=== PATIENT | male | born 1950 | race Caucasian/White ===

== ENCOUNTER 2019-06-11 05:17 | Inpatient (IN) | payer MEDICARE, OTHER ==
[2019-06-11] MEDS: CEFAZOLIN 2 GM/50 ML (PMX) 50 ML IVPB (06:37)
[2019-06-11] MEDS: LACTATED RINGER'S 1,000 ML IV (06:38)
[2019-06-11] MEDS ORDERED: DESFLURANE 15 MIN (07:02)
[2019-06-11] MEDS ORDERED: PROPOFOL 20 ML (07:02)
[2019-06-11] MEDS ORDERED: ROCURONIUM 50 MG INJ (07:02)
[2019-06-11] MEDS ORDERED: SUCCINYLCHOLINE CHLORIDE 100 MG/5 ML SYG IV (07:02)
[2019-06-11] MEDS ORDERED: ETOMIDATE 20 MG INJ (07:02)
[2019-06-11] MEDS ORDERED: LIDOCAINE 1% (MDV) 20 ML INJ (07:02)
[2019-06-11] MEDS ORDERED: MIDAZOLAM 1 MG/ML 2 ML INJ (07:02)
[2019-06-11] MEDS ORDERED: GELATIN SIZE 100 SPONGE (07:10)
[2019-06-11] MEDS ORDERED: THROMBIN 5000 UNIT (RECOTHROM) VIAL (07:10)
[2019-06-11] MEDS ORDERED: DEXAMETHASONE 4 MG/ML 5 ML INJ (07:20)
[2019-06-11] MEDS ORDERED: ONDANSETRON 4 MG INJ (07:20)
[2019-06-11] MEDS: POLYMYXIN/BACITRACIN 1L IRRIG (08:11)
[2019-06-11] MEDS: BUPIVACAINE 0.25% (MPF) 30 ML INJ (08:11)
[2019-06-11] MEDS ORDERED: LABETALOL HCL 20MG INJ IV (09:00)
[2019-06-11] MEDS ORDERED: HYDROmorphONE 1 MG/5 ML IV SYRINGE IV ×2 (09:00)
[2019-06-11] MEDS ORDERED: hydrALAzine 20 MG INJ IV (09:00)
[2019-06-11] MEDS ORDERED: SUGAMMADEX SODIUM 200 MG/2 ML VIAL IV (10:04)
[2019-06-11] MEDS ORDERED: ESMOLOL 10 ML (10:09)
[2019-06-11] MEDS: HYDROmorphONE 1 MG/5 ML IV SYRINGE IV (10:42)
[2019-06-11] MEDS: ONDANSETRON 4 MG INJ IV (10:42)
[2019-06-11] MEDS ORDERED: ONDANSETRON 4 MG INJ IV (11:00)
[2019-06-11] MEDS ORDERED: ACETAMINOPHEN 325 MG TAB PO (11:00)
[2019-06-11] MEDS ORDERED: DIAZEPAM 5 MG TAB PO (11:00)
[2019-06-11] MEDS ORDERED: CEPASTAT LOZENGE MT (11:00)
[2019-06-11] MEDS ORDERED: HYDROCODONE/APAP (5/325) TAB PO ×2 (11:00)
[2019-06-11] MEDS ORDERED: TRIMETHOBENZAMIDE 100 MG/ML VIAL IM (11:00)
[2019-06-11] MEDS ORDERED: DIAZEPAM 5 MG/ML SYG IM (11:00)
[2019-06-11] MEDS ORDERED: ZOLPIDEM 5 MG TAB PO (11:00)
[2019-06-11] MEDS ORDERED: DIPHENHYDRAMINE 50 MG CAP PO (11:00)
[2019-06-11] MEDS ORDERED: AL HYDROX/MG HYDROX/SIMETH 30 ML CUP PO (11:00)
[2019-06-11] MEDS ORDERED: NALOXONE (0.4 MG/ML) INJ IV (11:00)
[2019-06-11] MEDS ORDERED: PROCHLORPERAZINE 10 MG TAB PO (11:00)
[2019-06-11] MEDS ORDERED: NACL 0.9% 3 ML SYG IV (11:00)
[2019-06-11] MEDS: HYDROmorphONE 0.2 MG/ML PCA IV (11:22)
[2019-06-11] MEDS ORDERED: ATENOLOL 25 MG TAB PO (13:30)
[2019-06-11] MEDS: DEXTROSE 5%-0.45% NACL 1,000 ML IV ×2 (16:45→20:57)
[2019-06-11] MEDS: ALLOPURINOL 100 MG TAB PO (16:45)
[2019-06-11] MEDS: PANTOPRAZOLE (EC) 40 MG TAB PO (16:45)
[2019-06-11] MEDS: THIAMINE 100 MG TAB PO (16:45)
[2019-06-11] MEDS: RANITIDINE 150 MG TAB PO (21:14)
[2019-06-11] MEDS: LOSARTAN 50 MG TAB PO (21:14)
[2019-06-11] MEDS: ATENOLOL 25 MG TAB PO (21:14)
[2019-06-11] MEDS: GABAPENTIN 300 MG CAP PO (21:14)
[2019-06-11] MEDS: ALFUZOSIN (SR) 10 MG TAB PO (23:31)
[2019-06-12] MEDS: DEXTROSE 5%-0.45% NACL 1,000 ML IV ×2 (02:23→16:57)
[2019-06-12] MEDS: HYDROmorphONE 0.2 MG/ML PCA IV (03:36)
[2019-06-12 06:19] LABS: HEMATOCRIT 38.3 % (42.0-52.0)
[2019-06-12 07:03] LABS: ANION GAP 5 (5-13); BLOOD UREA NITROGEN 18 mg/dl (7-20); CALCIUM 8.9 mg/dl (8.4-10.2); CARBON DIOXIDE 27 mmol/L (21-31); CHLORIDE 104 mmol/L (97-110); Estimated GFR > 60 mL/min (>60); GLUCOSE 124 mg/dl (70-220); POTASSIUM 4.1 mmol/L (3.5-5.1); SODIUM 136 mmol/L (135-144)
[2019-06-12] MEDS ORDERED: BETHANECHOL 25 MG TAB PO (08:00)
[2019-06-12] MEDS: THIAMINE 100 MG TAB PO (08:30)
[2019-06-12] MEDS: PANTOPRAZOLE (EC) 40 MG TAB PO (08:30)
[2019-06-12] MEDS: ASCORBIC ACID 500 MG TAB PO (08:30)
[2019-06-12] MEDS: ALLOPURINOL 100 MG TAB PO (08:30)
[2019-06-12] MEDS: RANITIDINE 150 MG TAB PO (08:30)
[2019-06-12] MEDS: DOCUSATE SODIUM 100 MG CAP PO (08:30)
[2019-06-12] MEDS: BETHANECHOL 25 MG TAB PO (08:30)
[2019-06-12] MEDS: GABAPENTIN 300 MG CAP PO ×2 (08:30→13:27)
[2019-06-12] MEDS: FERROUS SULFATE (EC) 325 MG TAB PO ×2 (08:31→13:27)
[2019-06-12] MEDS: ATENOLOL 25 MG TAB PO (08:37)
[2019-06-12] MEDS: LOSARTAN 50 MG TAB PO (08:37)
[2019-06-12] MEDS: CHLORTHALIDONE 25 MG TAB PO (08:37)
[2019-06-12 17:14] LABS: ADD UMIC YES; UR ASCORBIC ACID NEGATIVE (NEGATIVE); UR BILIRUBIN (Dip) NEGATIVE (NEGATIVE); UR BLOOD (Dip) 2+ mg/dL (NEGATIVE); UR CLARITY CLEAR (CLEAR); UR COLOR STRAW (YELLOW); UR GLUCOSE (Dip) NEGATIVE (NEGATIVE); UR KETONES (Dip) NEGATIVE (NEGATIVE); UR LEUKOCYTE ESTERASE (Dip) NEGATIVE Leu/ul (NEGATIVE); UR NITRITE (Dip) NEGATIVE (NEGATIVE); UR RBC 1 /HPF (0-5); UR SPECIFIC GRAVITY (Dip) 1.004 (1.003-1.030); UR TOTAL PROTEIN (Dip) NEGATIVE (NEGATIVE); UR UROBILINOGEN (Dip) NEGATIVE (NEGATIVE); UR WBC 1 /HPF (0-5)
== END 2019-06-12 19:00 | disposition home or self-care (01) | DRG 517 ==
LOC: REC 05:17 → MS1 14:50
PROC: 01NB0ZZ Release Lumbar Nerve, Open Approach (ICD-10-PCS; principal; 2019-06-11 07:00)
PROC: 4A11X4G Monitoring of Peripheral Nervous Electrical Activity, Intraoperative, External Approach (ICD-10-PCS; 2019-06-11 07:00)
DX: M48.061 Spinal stenosis, lumbar region without neurogenic claudication (principal); M51.36 Other intervertebral disc degeneration, lumbar region; I10 Essential (primary) hypertension; I25.10 Atherosclerotic heart disease of native coronary artery without angina pectoris; E78.5 Hyperlipidemia, unspecified; N40.0 Benign prostatic hyperplasia without lower urinary tract symptoms; E79.0 Hyperuricemia without signs of inflammatory arthritis and tophaceous disease; B18.2 Chronic viral hepatitis C; K21.9 Gastro-esophageal reflux disease without esophagitis; F17.200 Nicotine dependence, unspecified, uncomplicated; Z95.1 Presence of aortocoronary bypass graft; Z95.5 Presence of coronary angioplasty implant and graft
CPT/HCPCS: 72020; 80048; 81001; 85014; 85018; 86850; 86900; 86901; 86920; 87086; 88304; 88311; 97116; 97162; 97530